=== PATIENT | female | born 1955 | race Caucasian/White ===

== ENCOUNTER 2019-09-27 13:25 | Observation (INO) ==
[2019-09-27] MEDS ORDERED: Naloxone 0.4 MG/ML INJ IVP PRN (15:21)
[2019-09-27] MEDS ORDERED: Ringers Solution, Lactated 1,000 ML IVC SCH (15:30)
[2019-09-27] MEDS ORDERED: GI Cocktail 40 ML EACH PO ONE (15:46)
[2019-09-27] MEDS ORDERED: *HR* Labetalol 20 MG/4 ML SYRINGE IVP PRN (16:20)
[2019-09-27] MEDS: Ringers Solution, Lactated 1,000 ML IVC SCH (17:01)
[2019-09-27] MEDS: Nicotine 14 MG PATCH.TD24 TD SCH (17:01)
[2019-09-27] MEDS: Pantoprazole 40 MG VIAL IVP SCH (17:01)
[2019-09-28] MEDS: Ringers Solution, Lactated 1,000 ML IVC SCH (03:35)
[2019-09-28 04:49] LABS: Basophils # 0.1 K/mcL (0.0-0.2); Basophils % 0.3 %; Eosinophils % 0.2 %; Hematocrit 43.5 % (35.3-44.9); Hemoglobin 14.7 g/dL (11.5-15.4); Immature Granulocytes % 0.5 % (0-4); Lymphocytes # 1.9 K/mcL (0.6-4.6); Lymphocytes % 11.2 %; Mean Corpuscular HGB Conc 33.8 g/dL (31.6-35.5); Mean Corpuscular Volume 94.6 fL (83.0-100.0); Mean Platelet Volume 9.4 fL (9.4-12.4); Monocytes # 2.1 K/mcL (0.0-1.3); Monocytes % 12.1 %; Platelet Count 374 K/mcL (140-400); Red Cell Distribution Width 13.5 % (11.5-14.5); Segmented Neutrophils % 75.7 %; White Blood Count 17.2 K/mcL (4.3-11.1)
[2019-09-28 05:04] LABS: BUN/Creatinine Ratio 39 (6-26); Blood Urea Nitrogen 13 mg/dL (8-23); Calcium 8.7 mg/dL (8.6-10.3); Carbon Dioxide 26 mEq/L (23-29); Chloride 104 mEq/L (98-107); Glucose 85 mg/dL (70-105); Osmolality,Calculated 285 (280-300); Potassium 2.9 mEq/L (3.5-5.1); Sodium 138 mEq/L (136-145); eGFR For African Americans > 60 (> 60); eGFR For Non-African Americans > 60 (> 60)
[2019-09-28] MEDS: Pantoprazole 40 MG VIAL IVP SCH (08:06)
[2019-09-28] MEDS: Nicotine 14 MG PATCH.TD24 TD SCH (08:06)
[2019-09-28] MEDS: Ondansetron 4 MG/2 ML VIAL IVP PRN (08:49)
[2019-09-28] MEDS: Tiotropium 18 MCG inhalation IH SCH (11:20)
[2019-09-29 04:48] LABS: Hematocrit 44.4 % (35.3-44.9); Hemoglobin 15.3 g/dL (11.5-15.4); Mean Corpuscular HGB Conc 34.5 g/dL (31.6-35.5); Mean Corpuscular Hemoglobin 33.2 pg (28.0-33.3); Mean Corpuscular Volume 96.3 fL (83.0-100.0); Platelet Count 338 K/mcL (140-400); Red Blood Count 4.61 M/mcL (3.82-4.97); Red Cell Distribution Width 13.3 % (11.5-14.5); White Blood Count 14.6 K/mcL (4.3-11.1)
[2019-09-29 05:05] LABS: BUN/Creatinine Ratio 25 (6-26); Blood Urea Nitrogen 10 mg/dL (8-23); Calcium 8.8 mg/dL (8.6-10.3); Carbon Dioxide 31 mEq/L (23-29); Chloride 104 mEq/L (98-107); Glucose 88 mg/dL (70-105); Osmolality,Calculated 286 (280-300); Potassium 3.3 mEq/L (3.5-5.1); Sodium 139 mEq/L (136-145); eGFR For African Americans > 60 (> 60); eGFR For Non-African Americans > 60 (> 60)
[2019-09-29] MEDS: Tiotropium 18 MCG inhalation IH SCH (08:08)
[2019-09-29] MEDS: Pantoprazole 40 MG VIAL IVP SCH (08:50)
[2019-09-29] MEDS: Nicotine 14 MG PATCH.TD24 TD SCH (08:50)
[2019-09-29 10:38] VITALS: BP 158/79
[2019-09-29] MEDS: Ondansetron 4 MG/2 ML VIAL IVP PRN (13:25)
== END 2019-09-29 15:47 | disposition home or self-care (01) ==
LOC: 3ANU → SUATTDRO 15:21
PROVIDERS: ADMIT Internal Medicine; ATTEND Internal Medicine